=== PATIENT | male | born 1950 | race Caucasian/White ===

== ENCOUNTER 2020-06-17 14:56 | Emergency (ER) | payer MEDICAID ==
[~2020-06-17] VITALS: Ht 177.8 cm; Wt 82.7 kg
[2020-06-17 14:59] VITALS: Ht 177.8 cm; Wt 82.7 kg
[2020-06-17] MEDS ORDERED: PRAVACHOL40 MG PO (15:05)
[2020-06-17] MEDS ORDERED: CARDURA8 MG PO (15:05)
[2020-06-17] MEDS ORDERED: COZAAR100 MG PO (15:06)
[2020-06-17] MEDS ORDERED: TENORMIN25 MG PO (15:06)
[2020-06-17] MEDS ORDERED: FOLIC ACID1 MG PO (15:07)
[2020-06-17] MEDS ORDERED: NORVASC5 MG PO (15:07)
[2020-06-17] MEDS ORDERED: ASCORBIC ACID500 MG PO (15:08)
[2020-06-17] MEDS ORDERED: METHOTREXATE2.5 MG PO (15:08)
[2020-06-17] MEDS ORDERED: VITAMIN B-12500 MCG PO (15:08)
[2020-06-17] MEDS ORDERED: VITAMIN D-32000 UNIT PO (15:08)
[2020-06-17] MEDS ORDERED: ALBUTEROL SULF8.5 GM INH (15:09)
[2020-06-17] MEDS ORDERED: ZPAK PO (15:09)
[2020-06-17] MEDS ORDERED: TESSALON PERLE100 MG PO (15:09)
[2020-06-17] MEDS ORDERED: SPORANOX100 MG PO (15:10)
[2020-06-17] MEDS ORDERED: FUROSEMIDE20 MG PO (15:10)
[2020-06-17 15:26] LABS: CALC OSMOLALITY 279 mosm/kg (275-300); CALCIUM 8.3 mg/dL (8.5-10.1); CARBON DIOXIDE 30.4 mmol/L (21.0-32.0); CHLORIDE - SERUM 103 mmol/L (98-107); CREATININE - SERUM 1.1 mg/dL (0.6-1.3); GLUCOSE 129 mg/dL (74-106); POTASSIUM - SERUM 3.4 mmol/L (3.5-5.1); SODIUM 140 mmol/L (136-145); UREA NITROGEN 10 mg/dL (7-18); eGFR NON AFRICAN AMERICAN 70 mL/min (90-120)
[2020-06-17 15:27] LABS: APTT 30.5 SECONDS (22.8-39.4); INR 1.16 (0.85-1.17); PROTIME 13.7 SECONDS (11.6-15.0)
[2020-06-17 15:44] LABS: ALBUMIN 3.1 g/dL (3.4-5.0); ALKALINE PHOSPHATASE 100 U/L (30-120); ALT (SGPT) 21 U/L (10-68); BILIRUBIN - TOTAL 0.44 mg/dL (0.2-1.3); CKMB 0.1 U/L (0.0-3.6); CREATINE KINASE 58 UL (21-232); LIPASE 113 U/L (73-393); PRO BNP 166 pg/mL (0-125); PROTEIN - SERUM 6.6 g/dL (6.4-8.2); TROPONIN-I < 0.017 ng/mL (0.000-0.060)
[2020-06-17 15:53] LABS: BASOPHILS 0 % (0-2); EOSINOPHILS 1.2 % (0-7); HEMATOCRIT 40.5 % (42.0-54.0); HEMOGLOBIN 13.9 g/dL (13.5-17.5); IMMATURE GRANULOCYTES 0.3 % (0-5); LYMPHOCYTE ABS# 0.42 10x3/uL (1.32-3.57); LYMPHOCYTES 12.8 % (15-50); MCH 31.6 pg (26.0-34.0); MCHC 34.3 g/dL (31.0-37.0); MEAN PLATELET VOLUME 10.8 fL (7.4-10.4); MONOCYTES 13.7 % (2-11); NEUTROPHIL ABS# 2.36 10x3/uL (1.78-5.38); PLATELET COUNT 88 10x3/uL (130-400); WBC 3.3 10x3/uL (4.8-10.8)
[2020-06-17] MEDS ORDERED: DEXAMETHASONE2 MG PO (16:29)
[2020-06-17 16:40] LABS: PLATELET ESTIMATE DECREASED
[2020-06-17 17:44] VITALS: BP 121/68
== END 2020-06-17 17:45 | disposition home or self-care (01) ==
LOC: D.ER 14:56
PROVIDERS: Family Medicine
DX: R06.02 Shortness of breath (principal); Z20.822 Contact with and (suspected) exposure to COVID-19; I10 Essential (primary) hypertension; E78.5 Hyperlipidemia, unspecified